=== PATIENT | male | born 1945 | race Caucasian/White ===

== ENCOUNTER 2017-01-21 06:28 | Day surgery (SDC) | payer MEDICARE ==
[~2017-01-21] VITALS: Ht 177.8 cm; Wt 97.1 kg
[~2017-01-21 06:28] MED LIST: ATOR20TA42 PO; LISI10TA PO; LORT5TAB PO; OXYC-360 PO; PROM25SU8 PO; TAMS0.4C67 PO
[2017-01-21 06:56] VITALS: BP 144/88; PULSE 57; RESP 18; TEMP 97.8; O2SAT 97
[2017-01-21] MEDS ORDERED: METF1000 PO (06:57)
[2017-01-21] MEDS ORDERED: GLYB5TAB3 PO (06:57)
[2017-01-21] MEDS ORDERED: ASPI81CH CHEW (06:57)
[2017-01-21] MEDS ORDERED: LISI-519 PO (06:57)
[2017-01-21] MEDS ORDERED: TAMS0.4C4 PO (06:57)
[2017-01-21] MEDS ORDERED: SIMV40TA PO (06:57)
[2017-01-21] MEDS ORDERED: ASPIRIN 81 MG CHEW TAB PO SCH (07:15)
[2017-01-21 07:22] LABS: AUTOMATED NEUTROPHIL # 3.8 TH/MM3 (1.8-7.7); BASOPHIL % 0.5 % (0.0-2.0); EOSINOPHIL # 0.2 TH/MM3 (0-0.4); EOSINOPHIL % 2.9 % (0.0-4.0); HEMATOCRIT 46.4 % (39.0-51.0); HEMO FLAGS DIFF FINAL; LYMPH % 34.4 % (9.0-44.0); LYMPHOCYTE # 2.5 TH/MM3 (1.0-4.8); MEAN CORPUSCULAR HGB CONC 32.9 % (32.0-36.0); MONO % 9.3 % (0.0-8.0); NEUT % 52.9 % (16.0-70.0); PLATELET COUNT 222 TH/MM3 (150-450); RED BLOOD COUNT 5.46 MIL/MM3 (4.50-5.90); RED CELL DISTRIBUTION WIDTH 14.1 % (11.6-17.2); WHITE BLOOD COUNT 7.2 TH/MM3 (4.0-11.0)
[2017-01-21 07:32] LABS: APTT (PATIENT) 26.8 SEC (24.3-30.1); PROTHROMBIN TIME - PATIENT 11.5 SEC (9.8-11.6)
[2017-01-21 07:40] LABS: BICARBONATE 27.1 MEQ/L (21.0-32.0); POTASSIUM 4.1 MEQ/L (3.5-5.1)
[2017-01-21] MEDS ORDERED: HEPARIN-NS/PF INJ 500 ML ONE (08:23)
[2017-01-21] MEDS ORDERED: SODIUM CHLORIDE 0.9% FLUSH 10 ML FLUSH SCH (09:00)
[2017-01-21] MEDS ORDERED: SODIUM CHLORIDE 0.9% FLUSH 10 ML FLUSH PRN (09:00)
[2017-01-21] MEDS ORDERED: MISC INFORMATION XX ONE (09:00)
--- NOTE | 2017-01-21 09:19 | CATHPROC ---
Presentain HIS Report Study Information Study Number Admission Scheduled Start Study Start [id number] Jan 21 2017 6:28AM 01/21/2017 01/21/2017 [place] Cardiac Catheterization Admit Source Facility Department Other [facility] - Compotype Operator Physician and Clinical Staff Initial Gonsalo Duran RN, Charmaine Merritt RCIS TECH2 Scrub Elvis Pugh RCIS(BS) Procedures Performed Procedure Location (Site) Vessel Name Coronary Angiograms LCA Left Coronary Coronary Angiograms RCA Right Coronary LV Gram-hand inj. LV LV Ventricle Equipment Time Rehabilitation Assistant Description Size Mfg Part Number Used/Scraped TRANSDUCER, MAHIN [id number] 08:47 ZURITA LOPEZ * Used W/STOCKCOCK *[id number] [id number] *[id number] *[id number] 08:47 [employer] PACK, CCL CUSTOM * Used *[id number] 08:47 [employer] PACER PEN, SKIN DUAL W/ RULER * Used *[id number] 08:47 LIFX WIRE, 3MMJ .035 180CM 180CM Used *[id number] 08:47 NAMIC MANIFOLD, 4 PORT * Used *[id number] 08:47 NYCOMED OMNIPAQUE, 350 MG, 150ML 150ML [id number] Used 08:47 NYCOMED OMNIPAQUE, 350 MG, 50ML 50ML [id number] Used [id number] 08:47 [employer] BLANKET,WARM AIR CCL * Used *[id number] 08:47 TERUMO MEDICAL SHEATH, FR4 TERUMO (10CM) FR 4 [id number] Used History: Current Medications Medication Dosage/Unit Route Frequency Last Date/Time Taken ASA Glyburide LISINOPRIL Glucophage Statins (any) History: Allergies Allergy Reaction NKDA History: Risk Factors Family History of Hypertension Dyslipidemia Previous MN Previous Heart Failure Premature CAD Yes Yes Yes No No Prior Valve Prior PCI Prior CABG Surgery No No No Cerebrovascular Peripheral Artery Chronic Lung On Dialysis Diabetes Diabetes Therapy Disease Disease Disease No No No No Yes Oral History: Stress Tests Stress or Imaging Studies Performed Yes Standard Exercise Stress Test No Stress Echo No Stress Test SPECT Stress Test SPECT Result Stress Test SPECT Ischemia Risk/Extent Yes Positive Intermediate Stress Test CMR No Cardiac CTA Coronary Calcium Score No No History: Other Disease Selection Items Gerd History: Other Current Smoker No Labs Hgb (g/dl) Hct (%) WBC (l/cumm) Platelets (thousands) 12.00-18.00 37.00-55.00 4.80-10.80 140.00-450.00 15.3 46.4 7.2 222 Glucose (mg/dl) BUN (mg/dl) Creatinine (mg/dl) BUN:Creatinine (1:x) 60.00-110.00 8.00-20.00 0.10-9.00 10.00-20.00 159 17 1.0 17 Na (meq/l) K (meq/l) Cl (meq/l) CO2 (mmol/L) Ca (mg/dl) 138.00-146.00 3.80-5.10 101.00-111.00 23.00-30.00 9.00-10.50 143 4.1 108 27.1 9.1 CPK-MB (ng/ML) 0.00-7.00 Not Drawn Medication Medication Total Dose (Bolus/Oral) Medication Total Dosage/Unit 1% XYLOCAINE 20 mL Medications (Bolus/Oral) Medication Time Given Dosage/Unit Administered By Reason 1% XYLOCAINE 01/21/2017 8:45:14 AM 20 mL BonyGonsalo 20 mL 1% XYLOCAINE given in lab by Gonsalo Lovett in Right Groin via Subcutaneous. Medication (Drip) Medication Time Given Dosage/Unit Concentration/Unit Diluent (ml) Solution IV Solutions 01/21/2017 8:23:52 AM 0 mL (IV) 500 NaCl .9 Patient arrived on IV Solutions given by Gilberto Allison RN in Left Antecubital via Peripheral IV. Pump/ Drip Flow = 20 ml/hr using NaCl .9. Initial Case Assessment Cardiovascular HR Rhythm NIBP Chest Pain 66 sr 170/88 0 Circulatory - Right Pulses Dorsalis Pedis Femoral 1 2 Scale (0,1,2,3,4,d) Circulatory - Left Pulses Dorsalis Pedis Femoral 2 2 Scale (0,1,2,3,4,d) Neurological State Oriented to time-place- Alert Moves all extremities person Respiration - General Respiration Rate SpO2 (%) (B/min) 10 99 Final Case Assessment Cardiovascular HR Rhythm NIBP Chest Pain 57 sb 150/81 0 Circulatory - Right Pulses Dorsalis Pedis Femoral 1 2 Scale (0,1,2,3,4,d) Circulatory - Left Pulses Dorsalis Pedis Femoral 2 2 Scale (0,1,2,3,4,d) Neurological State Oriented to time-place- Alert Moves all extremities person Respiration - General Respiration Rate SpO2 (%) (B/min) 12 98 Chronological Log Time Study Chronological Log 8:22:07 Patient arrived via Bed. 8:22:12 Patient Name, D.O.B, / Armband Verified By R.N. Vitals capture started with the following parameters, Patient=Adult, Interval=5 min, Initial Pre lxmkm=103 mmHg, 8:23:02 Deflation Rate=5 mmHg 8:23:18 Pre-op and post- op instructions given; patient acknowledges understanding of instructions. 8:23:19 Verbal Stimulation=2 Physical Stimulation=2 Airway=2 Respiration=2 TOTAL=8. (0=absent, 1=lang ited, 2=present) 8:23:32 Presedation assessment performed by Compotype Operator RN. 8:23:33 Patient has been NPO for More than 6Hrs. 8:23:35 Skin Breakdown-none 8:23:37 Son Prominences Protected 8:23:40 A # 20 IV was noted in the Antecubital (left). Grade = patent 8:23:51 HR=65 bpm, NEDK=434/88 mmhg, SpO2=99.0 %, Resp=10 B/min, Pain=0, Morris=2 Patient arrived on IV Solutions given by Gilberto Allison RN in Left Antecubital via Peripheral IV. Pump/Drip Flow = 20 8:23:52 ml/hr using NaCl .9. 8:24:50 History and physical on the chart or being dictated. 8:24:53 Reference ECG taken Assessment: Initial Case, HR=66 BPM, Rhythm=sr, BCDV=574/88 mmhg, Chest Pain=0 Right Pulses: Ky Ped=1, Femoral=2 8:25:04 Left Pulses: Ky Ped=2, Femoral=2 Neurological: State=Alert, Ox3, CASTRO Respiration: Resp=10 B/min, SpO2=99 % 8:28:50 HR=66 bpm, OHNN=547/82 mmhg, SpO2=99.0 %, Resp=9 B/min, Pain=0, Morris=2 8:33:47 HR=58 bpm, LCFT=275/84 mmhg, SpO2=98.0 %, Resp=12 B/min, Pain=0, Morris=2 8:34:23 Bilateral groins prepped with 2% chlorhexidine, and draped after a 3 min. waiting time. 8:36:29 Pressure channel 1 zeroed. 8:38:39 MD paged 8:38:48 HR=61 bpm, GREH=906/85 mmhg, SpO2=99.0 %, Resp=14 B/min, Pain=0, Morris=2 8:42:41 MD arrived. 8:43:45 HR=68 bpm, JIXL=139/97 mmhg, SpO2=98.0 %, Resp=11 B/min Time Out. Correct patient, correct procedure,correct physician, ,power injector loaded or not lo aded with contrast with 8:44:15 surgical team present. Time Out Concurred by MD, individual staff and REAL [employer] SALES ASSOCIATE in procedure 8:45:12 Case Start 8:45:14 20 mL 1% XYLOCAINE given in lab by Gonsalo Lovett in Right Groin via Subcutaneous. 8:46:27 Access site was Right Femoral Artery. 8:46:36 A sheath was advanced into the Fem Art (right) using the Percutaneous technique. A JR 4.0 INFINITI CATHETER FR 4 was advanced over a wire. OMNIPAQUE, 350 MG, 150ML 150ML was use d for 8:46:46 injections. Recorded Pressure: LV, HR=85, Condition=Condition 1 8:47:19 (Left Ventricle) LV 175/6/17 8:47:25 The LV was manually injected with 10 cc's and visualized. contrast used. Recorded Pressure: Ao, HR=66, Condition=Condition 1 8:47:30 (Aorta) Ao 173/81/119 8:47:51 The RCA was injected and visualized at various angles. OMNIPAQUE, 350 MG, 150ML 150ML used. 8:48:43 Catheter was removed 8:48:44 HR=62 bpm, GIKG=471/98 mmhg, SpO2=98.0 %, Resp=13 B/min, Pain=0, Morris=2 A JL 4.0 INFINITI CATHETER FR 4 was advanced over a wire. OMNIPAQUE, 350 MG, 150ML 150ML was u sed for 8:48:45 injections. 8:49:56 The LCA was injected and visualized at various angles. OMNIPAQUE, 350 MG, 150ML 150ML use d. 8:51:23 Catheter was removed 8:51:27 Case End 8:51:51 No case complications noted. 8:51:52 Cine recording checked. 8:53:49 HR=62 bpm, EAFC=313/78 mmhg, SpO2=98.0 %, Resp=7 B/min 8:56:44 Sheath removed; pressure applied to access site. 8:59:23 HR=53 bpm, JMAV=476/88 mmhg, SpO2=98.0 %, Resp=18 B/min, Pain=0, Morris=2 9:03:48 HR=54 bpm, ZEPQ=219/84 mmhg, SpO2=98.0 %, Resp=12 B/min, Pain=0, Morris=2 9:08:47 IBOP=311/90 mmhg 9:13:46 HR=52 bpm, RZJA=181/81 mmhg, SpO2=98 %, Resp=13 B/min 9:15:27 Hemostasis obtained. 9:15:50 Sterile dressing applied to site Assessment: Final Case, HR=57 BPM, Rhythm=sb, LBDR=291/81 mmhg, Chest Pain=0 Right Pulses: Ky Ped=1, Femoral=2 9:16:16 Left Pulses: Ky Ped=2, Femoral=2 Neurological: State=Alert, Ox3, CASTRO Respiration: Resp=12 B/min, SpO2=98 % 9:17:34 Patient moved to bed 9:17:44 Bedside Report will be given. 9:17:58 Patient transported to DOCU. 9:18:34 Vitals capture stopped. End Study - Contrast Media Used In Study Contrast Total Opened (mL) Total Used (mL) Total Wasted (mL) Omnipaque 20 20 0 End Study - Maximum Contrast Load Max Contrast Load (mL) 485.5 End Study - Radiation Exposure Fluoro Time (minutes) 1.0 End Study - Sheaths Sheaths Pulled By Sheath Hold Time (min) Elvis Pugh End Study - Patient Disposition Complications Transferred To No Telemetry Bed
[2017-01-21] MEDS ORDERED: IOHEXOL 350 MG/ML 50 ML BTL (for Cath Lab) OTHER ONE (10:46)
--- NOTE | 2017-01-21 17:17 | EKG ---
Date Performed: 01/21/2017 Time Performed: 07:28:30 PTAGE: 71 years EKG: Sinus bradycardia Left axis deviation Borderline ECG PREVIOUS TRACING : 09/13/2001 09.58 Compared to prior tracing no significant change DOCTOR: Lianet Enamorado Interpretating Date/Time 01/21/2017 17:15:38
--- NOTE | 2017-01-21 20:58 | MA ---
cc: DERRICK LOPEZ M.D. DATE 01/21/17 PROCEDURE Left heart catheterization, left ventriculography, coronary angiography. INDICATIONS New onset cardiac symptoms of syncope and hypotension, moderate to severe fatigue, anginal equivalent unstable angina. Class two angina, moderate sized fixed defect in the posterior wall and apex, gated SPECT ejection fraction 51%, diabetes mellitus, history of coronary artery disease. The patient was brought to the cardiac catheterization laboratory, prepped and draped in usual sterile fashion. 10 cc of 1% lidocaine was used to locally anesthetize the right common femoral artery, 4-Macedonian sheath was subsequently placed in the right common femoral artery. 4-Macedonian JR-4, JL-4 catheters were used to perform left and right coronary angiography, left ventriculography. FINDINGS LV pressures 110/5-8, ejection fraction 60%. The right coronary artery is dominant. There is mild diffuse plaque in the proximal and proximate segment up to 10-20% angiographically. There is also subtle distal disease up to about 20% angiographically. The vessel tapers from about a 3-0 vessel to about a 275 vessel in the mid and in the distal segment it is probably 2-5 mm in diameter. Right PDA has mild diffuse disease up to 10 to 20% angiographically. Left main coronary artery has no significant disease angiographically. Left surface vessel has mild diffuse disease after the first obtuse marginal vessel, up to 10% angiographically. The first obtuse marginal vessel is a large tortuous vessel purchase the apex, has mild diffuse disease in the midsegment up to 20% angiographically. The distal posterolateral artery which is a small vessel with no significant obstructive disease. The LAD has mild diffuse disease in the proximate segment up to 10-20% angiographically. The mid LAD has mild diffuse disease up to 10-20% angiographically. LAD is transapical. First diagonal artery is a small vessel with a proximal bifurcation. No significant obstructive disease. CONCLUSION 1. Angiographically mild three-vessel coronary artery disease in a right-dominant system. 2. Normal LV systolic function, ejection fraction 55-60%. 3. Recommend medical management of coronary artery disease, cardiac risk factor modification. Note, I have informed the patient myself personally to hold his Glucophage/ Metformin and also instructed the patient to follow up with me on Wednesday, January 25, 2017. MD SPIKE Rosales/KYRIE /8:58 AM /8:46 PM
== END 2017-01-21 12:09 | disposition home or self-care (01) ==
LOC: HDOC 06:28 → HDIC 06:28 → HDOC 12:09
PROVIDERS: ATTEND Internal Medicine Interventional Cardiology
DX: I25.110 Atherosclerotic heart disease of native coronary artery with unstable angina pectoris (principal); I95.9 Hypotension, unspecified; E11.9 Type 2 diabetes mellitus without complications; Z01.810 Encounter for preprocedural cardiovascular examination; Z01.818 Encounter for other preprocedural examination
CPT/HCPCS: 80048; 85025; 85610; 85730; 93005; 93458; C1769; C1893; J1644; Q9967